=== PATIENT | female | born 1945 | race Caucasian/White ===

== ENCOUNTER 2017-04-22 09:15 | Emergency (ER) | payer OTHER ==
[~2017-04-22] VITALS: Ht 154.9 cm; Wt 104.3 kg
[~2017-04-22 09:15] MED LIST: AMIT10 PO; ASPI81CH PO; ASPI81EC; AZIT250 PO; CALCA500CH PO; CALCAVITD PO; CALCIT950 PO; CHOL10002; ERGO400 PO; ETOD400 PO; ETOD500 PO; ETOD500CR PO; LEVSOD100; LEVSOD100 PO; LEVSOD88 PO; LISHYD1012 PO; LISHYD2025 PO; LISI10; METO25 PO; OMEP20ER PO; OXYC5 PO; PREG75 PO; SERT50 PO; Slo-Niacin250 MG PO; [UNRECOGNIZED DRUG - OTHER]
== END 2017-04-22 11:55 | disposition home or self-care (01) ==
LOC: ER 09:15
DX: S00.83XA Contusion of other part of head, initial encounter (principal); S00.11XA Contusion of right eyelid and periocular area, initial encounter; I10 Essential (primary) hypertension; E03.9 Hypothyroidism, unspecified; Z79.899 Other long term (current) drug therapy; Z79.82 Long term (current) use of aspirin; Z87.891 Personal history of nicotine dependence; W22.8XXA Striking against or struck by other objects, initial encounter
CPT/HCPCS: 70450; 99284

== ENCOUNTER → 2018-08-21 | Outpatient (CLI) | payer OTHER ==
[2018-08-21 12:38] LABS: Appearance, Urine Clear (Clear); Blood, Urine 1+ (Neg); Color, Urine Yellow (P-Yellow); Glucose Qualitative, Urine Neg (Neg); Ketones, Urine Neg (Neg); Leukocyte Esterase, Urine 1+ (Neg); Nitrite, Urine Neg (Neg); Protein, Urine Neg (Neg); Specific Gravity, Urine 1.025 (1.003-1.022); Urobilinogen, Urine NORM (Normal)
[2018-08-21 12:53] LABS: Bilirubin, Urine 3+ (Neg)
[2018-08-21 13:02] LABS: Bacteria Rare /hpf; Mucus Light (0-Heavy); Red Blood Cells, Urine 0-2 /hpf (0-2); Squamous Epithelial Cells Few /hpf (Few)
== END | disposition home or self-care (01) ==
LOC: LAB 12:24 → LAB SHORT 12:24
PROVIDERS: Family Medicine
DX: R39.15 Urgency of urination (principal)
CPT/HCPCS: 81001

== ENCOUNTER → 2019-01-15 | Outpatient (CLI) | payer OTHER ==
[~2019-01-15] MED LIST changes: +CENTRUM SILVER1 EAC2 PO; -CHOL10002; +DOXY100 PO; +ONDA4ODT MM; +Synthroid88 MCG PO; +VITAMIN D32000 UNI3 PO
== END | disposition home or self-care (01) ==
LOC: LAB 15:10 → LAB SHORT 15:10
DX: N39.0 Urinary tract infection, site not specified (principal)
CPT/HCPCS: 87086

== ENCOUNTER 2019-02-17 11:54 | Emergency (ER) | payer OTHER ==
[~2019-02-17] VITALS: Ht 154.9 cm; Wt 89.4 kg
[~2019-02-17 11:54] MED LIST changes: -CENTRUM SILVER1 EAC2 PO; -DOXY100 PO; -ONDA4ODT MM; -Synthroid88 MCG PO
[2019-02-17] MEDS ORDERED: Synthroid88 MCG PO (12:22)
[2019-02-17] MEDS ORDERED: CENTRUM SILVER1 EAC2 PO (12:23)
[2019-02-17] MEDS ORDERED: DOXY100 PO (12:30)
[2019-02-17] MEDS ORDERED: ONDA4ODT MM (13:53)
== END 2019-02-17 14:12 | disposition home or self-care (01) ==
LOC: ER 11:54
DX: S16.1XXA Strain of muscle, fascia and tendon at neck level, initial encounter (principal); S00.03XA Contusion of scalp, initial encounter; I10 Essential (primary) hypertension; E03.9 Hypothyroidism, unspecified; Z79.899 Other long term (current) drug therapy; Z79.82 Long term (current) use of aspirin; Z87.891 Personal history of nicotine dependence; W01.0XXA Fall on same level from slipping, tripping and stumbling without subsequent striking against object, initial encounter
CPT/HCPCS: 70450; 72125; 99283-25; A9270-GY

== ENCOUNTER → 2019-10-16 | Outpatient (CLI) | payer OTHER ==
[~2019-10-16] MED LIST changes: +CENTRUM SILVER1 EAC2 PO; +DOXY100 PO; +ONDA4ODT MM; +Synthroid88 MCG PO
[2019-10-16 08:45] LABS: Source, Urine Clean Catch
[2019-10-16 09:09] LABS: Appearance, Urine Hazy (Clear); Bilirubin, Urine 2+ (Neg); Blood, Urine 1+ (Neg); Color, Urine Yellow (P-Yellow); Glucose Qualitative, Urine Neg (Normal); Ketones, Urine Neg (Neg); Leukocyte Esterase, Urine 2+ (Neg); Nitrite, Urine Neg (Neg); Protein, Urine Neg (Neg); Specific Gravity, Urine 1.025 (1.003-1.022); Urobilinogen, Urine NORM (Normal)
[2019-10-16 09:10] LABS: Bacteria Few /hpf; Squamous Epithelial Cells Mod /hpf (Few)
== END | disposition home or self-care (01) ==
LOC: LAB EV 08:30 → LAB SHORT 08:30
PROVIDERS: Family Medicine
DX: R53.83 Other fatigue (principal)
CPT/HCPCS: 81001; 87077; 87086; 87186

== ENCOUNTER 2019-11-18 22:23 | Emergency (ER) | payer OTHER ==
[~2019-11-18] VITALS: Ht 154.9 cm; Wt 99.8 kg
[2019-11-18] MEDS ORDERED: HYDR1TAB94 PO (23:29)
[2019-11-19] MEDS ORDERED: Crutch1 EACH XX (00:08)
== END 2019-11-19 00:41 | disposition home or self-care (01) ==
LOC: ER 22:23
DX: S82.831A Other fracture of upper and lower end of right fibula, initial encounter for closed fracture (principal); I10 Essential (primary) hypertension; E03.9 Hypothyroidism, unspecified; Z79.82 Long term (current) use of aspirin; Z79.899 Other long term (current) drug therapy; Z87.891 Personal history of nicotine dependence; W01.0XXA Fall on same level from slipping, tripping and stumbling without subsequent striking against object, initial encounter; Y93.89 Activity, other specified
CPT/HCPCS: 29515; 36415; 73502; 73560-RT; 73610; 96374-59; 96375-59; 99283-25; A9270; A9270-GY; J2405; J3010

== ENCOUNTER 2019-11-26 09:19 | Day surgery (SDC) | payer OTHER ==
[~2019-11-26] VITALS: Ht 162.6 cm; Wt 94.4 kg
[~2019-11-26 09:19] MED LIST changes: +Crutch1 EACH XX; +HYDR1TAB94 PO
[2019-11-26] MEDS ORDERED: SERT50 PO (09:37)
--- NOTE | 2019-11-26 12:44 | NUR ---
11/26/19 1244 LALITA FERGUSON PATIENT UP TO RECLINER. VSS. PATIENT MEDICATED WITH IV FENTANYL FOR PAIN AND PO NORCO PER MD ORDERS. PATIENT TOLERATING PO INTAKE. IV PATENT. PAT REPORTS IMRPOVEMENT OF PAIN WITH IV PAIN MEDICATION, PO GIVEN TO MAINTAIN PAIN LEVEL. ENGAGED IN DC TEACHING, ALL QUESTIONS ASKED AND ANSWERED. IV DC'D.
== END 2019-11-26 12:47 | disposition home or self-care (01) ==
LOC: ORSCSDS 09:19
PROVIDERS: Orthopaedic Surgery
PROC: 0QSJ04Z Reposition Right Fibula with Internal Fixation Device, Open Approach (ICD-10-PCS; principal; 2019-11-26 10:15)
DX: S82.61XA Displaced fracture of lateral malleolus of right fibula, initial encounter for closed fracture (principal); I10 Essential (primary) hypertension; G47.33 Obstructive sleep apnea (adult) (pediatric); E03.9 Hypothyroidism, unspecified; M79.7 Fibromyalgia; E66.01 Morbid (severe) obesity due to excess calories; Z68.41 Body mass index [BMI] 40.0-44.9, adult; Z79.899 Other long term (current) drug therapy; Z79.82 Long term (current) use of aspirin
CPT/HCPCS: A9270-GY; C1713; J0171; J0690; J1100; J1885; J2250; J2405; J2704; J3010; J3370

== ENCOUNTER 2019-12-24 16:38 | Emergency (ER) | payer OTHER ==
[~2019-12-24] VITALS: Ht 152.4 cm; Wt 90.7 kg
== END 2019-12-24 20:15 | disposition home or self-care (01) ==
LOC: ER 16:38
DX: M25.561 Pain in right knee (principal); I10 Essential (primary) hypertension; E03.9 Hypothyroidism, unspecified; Z46.89 Encounter for fitting and adjustment of other specified devices; Z79.82 Long term (current) use of aspirin; Z79.899 Other long term (current) drug therapy; X50.1XXA Overexertion from prolonged static or awkward postures, initial encounter; W01.0XXA Fall on same level from slipping, tripping and stumbling without subsequent striking against object, initial encounter
CPT/HCPCS: 29705; 73562-RT; 99283-25

== ENCOUNTER 2019-12-28 16:36 | Emergency (ER) | payer OTHER ==
[~2019-12-28] VITALS: Ht 152.4 cm; Wt 90.7 kg
[2019-12-28] MEDS ORDERED: XARELTO15 MG PO (18:21)
== END 2019-12-28 18:56 | disposition home or self-care (01) ==
LOC: ER 16:36
DX: I82.431 Acute embolism and thrombosis of right popliteal vein (principal); I82.441 Acute embolism and thrombosis of right tibial vein; E03.9 Hypothyroidism, unspecified; I10 Essential (primary) hypertension; Z79.82 Long term (current) use of aspirin; Z79.899 Other long term (current) drug therapy; Z87.891 Personal history of nicotine dependence
CPT/HCPCS: 93971; 99283-25

== ENCOUNTER → 2020-08-06 | Outpatient (CLI) | payer OTHER ==
[~2020-08-06] MED LIST changes: +XARELTO15 MG PO
== END | disposition home or self-care (01) ==
LOC: LAB SHORT 12:20
DX: N39.0 Urinary tract infection, site not specified (principal)
CPT/HCPCS: 87077; 87086; 87186

== ENCOUNTER 2021-04-05 06:49 | Emergency (ER) | payer OTHER ==
[~2021-04-05] VITALS: Ht 152.4 cm; Wt 102.1 kg
[2021-04-05] MEDS ORDERED: PRAVASTATIN SOD10 MG PO (07:52)
[2021-04-05] MEDS ORDERED: Prinivil10 MG PO (07:54)
[2021-04-05 07:55] LABS: BASOPHILS ABSOLUTE AUTO 0.05 K/mm3 (0.00-0.23); BASOPHILS PERCENT AUTO 1 % (0-2); EOSINOPHILS ABSOLUTE AUTO 0.04 K/mm3 (0.00-0.68); EOSINOPHILS PERCENT AUTO 1 % (0-6); Hematocrit 41.9 % (33.0-51.0); Hemoglobin 13.3 g/dL (11.5-16.0); IMMATURE GRAN ABSOLUTE AUTO 0.02 K/mm3 (0.00-0.10); IMMATURE GRAN PERCENT AUTO 0 % (0-1); LYMPHOCYTES ABSOLUTE AUTO 1.08 K/mm3 (0.84-5.20); LYMPHOCYTES PERCENT AUTO 14 % (21-46); MONOCYTES ABSOLUTE AUTO 0.63 K/mm3 (0.16-1.47); MONOCYTES PERCENT AUTO 8 % (4-13); Mean Corpuscular HGB 27.8 pg (26.0-34.0); Mean Corpuscular HGB Conc 31.7 g/dL (31.5-36.5); Mean Corpuscular Volume 88 fL (80-100); NEUTROPHILS ABSOLUTE AUTO 5.95 K/mm3 (1.96-9.15); NEUTROPHILS PERCENT AUTO 77 % (41-73); Platelet Count 447 K/mm3 (150-400); RDW Coefficient Variation 13.6 % (11.7-14.2); RDW Standard Deviation 43.8 fL (35.1-46.3); Red Blood Cell Count 4.79 M/mm3 (3.80-5.20); White Blood Cell Count 7.77 K/mm3 (4.00-11.30)
[2021-04-05 08:50] LABS: Albumin, Blood 3.2 g/dL (3.4-5.0); Albumin/Globulin Ratio 0.8 (0.8-1.8); Bilirubin, Total 0.6 mg/dL (0.1-1.0); Bun/Creatinine Ratio 21.2 (12.0-20.0); Calcium, Blood 9.1 mg/dL (8.5-10.1); Creatinine, Blood 0.94 mg/dL (0.40-1.00); Potassium, Blood 3.6 mmol/L (3.5-5.5); Total Protein, Blood 7.2 g/dL (6.4-8.2)
[2021-04-05 10:23] LABS: Source, Urine Straight Cath
[2021-04-05 11:04] LABS: Blood, Urine 5+ (Neg); Glucose Qualitative, Urine Neg (Neg); Ketones, Urine 2+ (Neg); Leukocyte Esterase, Urine 1+ (Neg); Nitrite, Urine Neg (Neg); Protein, Urine 2+ (Neg); Urobilinogen, Urine NORM (Normal)
[2021-04-05 11:15] LABS: Appearance, Urine Cloudy (Clear); Bilirubin, Urine 2+ (Neg); Color, Urine Yellow (P-Yellow)
[2021-04-05 11:18] LABS: Bacteria Mod /hpf; Red Blood Cells, Urine TNTC /hpf (0-2); Squamous Epithelial Cells Rare /hpf (Few); White Blood Cells, Urine 0-2 /hpf (0-5)
[2021-04-05] MEDS ORDERED: OXYC5 PO (11:46)
== END 2021-04-05 11:56 | disposition home or self-care (01) ==
LOC: ER 06:49
PROVIDERS: Emergency Medicine
DX: N13.2 Hydronephrosis with renal and ureteral calculous obstruction (principal); I10 Essential (primary) hypertension; E03.9 Hypothyroidism, unspecified; Z87.891 Personal history of nicotine dependence; Z79.82 Long term (current) use of aspirin; Z79.899 Other long term (current) drug therapy
CPT/HCPCS: 36415; 51701; 74176; 80053; 81000; 81001; 83690; 85025; 87086; 96374; 96375; 99284-25; J0696; J1170; J2405; J7030

== ENCOUNTER 2021-05-22 08:28 | Emergency (ER) | payer OTHER ==
[~2021-05-22] VITALS: Ht 157.5 cm; Wt 86.2 kg
[~2021-05-22 08:28] MED LIST changes: +PRAVASTATIN SOD10 MG PO; +Prinivil10 MG PO
[2021-05-22 09:19] LABS: BASOPHILS ABSOLUTE AUTO 0.05 K/mm3 (0.00-0.23); BASOPHILS PERCENT AUTO 1 % (0-2); EOSINOPHILS ABSOLUTE AUTO 0.02 K/mm3 (0.00-0.68); EOSINOPHILS PERCENT AUTO 0 % (0-6); Hematocrit 39.1 % (33.0-51.0); Hemoglobin 12.5 g/dL (11.5-16.0); IMMATURE GRAN ABSOLUTE AUTO 0.03 K/mm3 (0.00-0.10); IMMATURE GRAN PERCENT AUTO 0 % (0-1); LYMPHOCYTES PERCENT AUTO 11 % (21-46); MONOCYTES ABSOLUTE AUTO 0.57 K/mm3 (0.16-1.47); MONOCYTES PERCENT AUTO 8 % (4-13); Mean Corpuscular HGB 28.2 pg (26.0-34.0); Mean Corpuscular Volume 88 fL (80-100); NEUTROPHILS PERCENT AUTO 80 % (41-73); Platelet Count 428 K/mm3 (150-400); RDW Coefficient Variation 13.3 % (11.7-14.2); RDW Standard Deviation 43.3 fL (35.1-46.3); Red Blood Cell Count 4.44 M/mm3 (3.80-5.20); White Blood Cell Count 7.37 K/mm3 (4.00-11.30)
[2021-05-22 09:25] LABS: Albumin, Blood 3.1 g/dL (3.4-5.0); Albumin/Globulin Ratio 0.7 (0.8-1.8); Bilirubin, Total 0.3 mg/dL (0.1-1.0); Bun/Creatinine Ratio 24.5 (12.0-20.0); Calcium, Blood 9.3 mg/dL (8.5-10.1); Creatinine, Blood 1.06 mg/dL (0.40-1.00); Globulin, Blood 4.3 g/dL (2.2-4.0); Potassium, Blood 3.9 mmol/L (3.5-5.5); Total Protein, Blood 7.4 g/dL (6.4-8.2)
[2021-05-22 09:35] LABS: Source, Urine Clean Catch
[2021-05-22 09:39] LABS: Appearance, Urine Clear (Clear); Blood, Urine 4+ (Neg); Color, Urine Yellow (P-Yellow); Glucose Qualitative, Urine Neg (Neg); Ketones, Urine Neg (Neg); Leukocyte Esterase, Urine Neg (Neg); Nitrite, Urine Neg (Neg); Protein, Urine Neg (Neg); Urobilinogen, Urine NORM (Normal)
[2021-05-22 09:49] LABS: Bilirubin, Urine 1+ (Neg)
[2021-05-22 09:50] LABS: White Blood Cells, Urine 0-2 /hpf (0-5)
[2021-05-22 09:51] LABS: Bacteria Rare /hpf; Squamous Epithelial Cells Rare /hpf (Few)
[2021-05-22] MEDS ORDERED: ONDA4ODT MM (11:36)
[2021-05-22] MEDS ORDERED: OXAYDO5 M1 PO (11:36)
[2021-05-22] MEDS ORDERED: TAMS.4ER PO (11:36)
[2021-05-22] MEDS ORDERED: IBUP600 PO (11:36)
== END 2021-05-22 12:33 | disposition home or self-care (01) ==
LOC: ER 08:28
PROVIDERS: Emergency Medicine; Student in an Organized Health Care Education/Training Program
DX: T78.3XXA Angioneurotic edema, initial encounter (principal); N13.2 Hydronephrosis with renal and ureteral calculous obstruction; N17.9 Acute kidney failure, unspecified; I10 Essential (primary) hypertension; E03.9 Hypothyroidism, unspecified; Z87.891 Personal history of nicotine dependence; Z79.82 Long term (current) use of aspirin; Z79.899 Other long term (current) drug therapy
CPT/HCPCS: 36415; 74176; 80053; 81001; 83690; 85025; 96374; 96375; 99284-25; A9270; J1170; J1200; J1885; J2930

== ENCOUNTER 2021-05-24 10:40 | Emergency (ER) | payer OTHER ==
[~2021-05-24] VITALS: Ht 152.4 cm; Wt 90.7 kg
[~2021-05-24 10:40] MED LIST changes: +IBUP600 PO; +OXAYDO5 M1 PO; +TAMS.4ER PO
[2021-05-24 11:53] LABS: Source, Urine Clean Catch
[2021-05-24 11:59] LABS: Appearance, Urine Clear (Clear); Bilirubin, Urine Neg (Neg); Blood, Urine 3+ (Neg); Glucose Qualitative, Urine Neg (Neg); Ketones, Urine Neg (Neg); Leukocyte Esterase, Urine Neg (Neg); Nitrite, Urine Neg (Neg); Protein, Urine Neg (Neg); Urobilinogen, Urine NORM (Normal)
[2021-05-24 12:35] LABS: Bacteria Rare /hpf; Color, Urine Pale Yellow (P-Yellow); Squamous Epithelial Cells Rare /hpf (Few); White Blood Cells, Urine 0-2 /hpf (0-5)
[2021-05-24] MEDS ORDERED: ONDA4ODT MM (13:16)
[2021-05-24] MEDS ORDERED: TAMS.4ER PO (13:16)
== END 2021-05-24 13:30 | disposition home or self-care (01) ==
LOC: ER 10:40
PROVIDERS: Student in an Organized Health Care Education/Training Program
DX: N23 Unspecified renal colic (principal); R11.2 Nausea with vomiting, unspecified; N13.30 Unspecified hydronephrosis; Z79.899 Other long term (current) drug therapy; Z79.82 Long term (current) use of aspirin; I10 Essential (primary) hypertension; E03.9 Hypothyroidism, unspecified
CPT/HCPCS: 36415; 76770; 81001; 96374; 96375; 99284-25; A9270; J1885; J2405; J7030

== ENCOUNTER 2022-02-04 06:39 | Emergency (ER) | payer OTHER ==
[~2022-02-04] VITALS: Ht 154.9 cm; Wt 72.6 kg
[2022-02-04] MEDS ORDERED: Lisinopril-Hct1 EAC4 PO (08:17)
[2022-02-04] MEDS ORDERED: ROSUVASTATIN CAL5 MG PO (08:18)
[2022-02-04] MEDS ORDERED: METOPROLOL SUCC25 MG PO (08:18)
[2022-02-04] MEDS ORDERED: IBUP600 PO (10:06)
== END 2022-02-04 10:22 | disposition home or self-care (01) ==
LOC: ER 06:39
DX: S63.501A Unspecified sprain of right wrist, initial encounter (principal); W18.30XA Fall on same level, unspecified, initial encounter; I10 Essential (primary) hypertension; E03.9 Hypothyroidism, unspecified; Z79.899 Other long term (current) drug therapy; Z79.82 Long term (current) use of aspirin
CPT/HCPCS: 73110; A9270; J1885

== ENCOUNTER 2022-03-23 11:55 | Emergency (ER) | payer OTHER ==
[~2022-03-23] VITALS: Ht 157.5 cm; Wt 68.0 kg
[~2022-03-23 11:55] MED LIST changes: +Lisinopril-Hct1 EAC4 PO; +METOPROLOL SUCC25 MG PO; +ROSUVASTATIN CAL5 MG PO
[2022-03-23] MEDS ORDERED: Voltaren100 GM TOP (12:12)
== END 2022-03-23 12:14 | disposition home or self-care (01) ==
LOC: ER 11:55
DX: S63.501A Unspecified sprain of right wrist, initial encounter (principal); W18.30XA Fall on same level, unspecified, initial encounter; I10 Essential (primary) hypertension; E03.9 Hypothyroidism, unspecified; Z79.899 Other long term (current) drug therapy; Z79.82 Long term (current) use of aspirin
CPT/HCPCS: 29125; 99282-25

== ENCOUNTER 2022-09-16 10:36 | Emergency (ER) | payer MEDICARE ==
[~2022-09-16] VITALS: Ht 165.1 cm; Wt 99.8 kg
[~2022-09-16 10:36] MED LIST changes: +Voltaren100 GM TOP
[2022-09-16 10:59] LABS: Source, Urine Fem Cath
[2022-09-16 11:09] LABS: Appearance, Urine Clear (Clear); Bilirubin, Urine Neg (Neg); Blood, Urine 4+ (Neg); Color, Urine Yellow (P-Yellow); Glucose Qualitative, Urine Neg (Neg); Ketones, Urine Neg (Neg); Leukocyte Esterase, Urine Neg (Neg); Nitrite, Urine Neg (Neg); Protein, Urine Neg (Neg); Specific Gravity, Urine 1.025 (1.003-1.022); Urobilinogen, Urine NORM (Normal)
[2022-09-16 11:18] LABS: BASOPHILS ABSOLUTE AUTO 0.05 K/mm3 (0.00-0.23); BASOPHILS PERCENT AUTO 1 % (0-2); EOSINOPHILS ABSOLUTE AUTO 0.03 K/mm3 (0.00-0.68); EOSINOPHILS PERCENT AUTO 1 % (0-6); Hematocrit 38.5 % (33.0-51.0); Hemoglobin 12.6 g/dL (11.5-16.0); IMMATURE GRAN ABSOLUTE AUTO 0.01 K/mm3 (0.00-0.10); IMMATURE GRAN PERCENT AUTO 0 % (0-1); LYMPHOCYTES ABSOLUTE AUTO 1.15 K/mm3 (0.84-5.20); LYMPHOCYTES PERCENT AUTO 26 % (21-46); MONOCYTES ABSOLUTE AUTO 0.47 K/mm3 (0.16-1.47); MONOCYTES PERCENT AUTO 11 % (4-13); Mean Corpuscular HGB 29.4 pg (26.0-34.0); Mean Corpuscular HGB Conc 32.7 g/dL (31.5-36.5); Mean Corpuscular Volume 90 fL (80-100); Mean Platelet Volume 8.7 fL (9.1-12.4); NEUTROPHILS ABSOLUTE AUTO 2.73 K/mm3 (1.96-9.15); NEUTROPHILS PERCENT AUTO 62 % (41-73); Platelet Count 344 K/mm3 (150-400); RDW Coefficient Variation 13.1 % (11.7-14.2); RDW Standard Deviation 43.2 fL (35.1-46.3); Red Blood Cell Count 4.29 M/mm3 (3.80-5.20); White Blood Cell Count 4.44 K/mm3 (4.00-11.30)
[2022-09-16 11:32] LABS: Mucus Mod (0-Heavy)
[2022-09-16 11:33] LABS: Squamous Epithelial Cells Mod /hpf (Few)
[2022-09-16 11:34] LABS: Bacteria Few /hpf
[2022-09-16 11:38] LABS: Albumin, Blood 2.7 g/dL (3.4-5.0); Albumin/Globulin Ratio 0.6 (0.8-1.8); Bilirubin, Total 0.3 mg/dL (0.1-1.0); Bun/Creatinine Ratio 21.1 (12.0-20.0); Calcium, Blood 8.8 mg/dL (8.5-10.1); Creatinine, Blood 0.62 mg/dL (0.40-1.00); Globulin, Blood 4.2 g/dL (2.2-4.0); Total Protein, Blood 6.9 g/dL (6.4-8.2)
[2022-09-16 12:03] LABS: Free Thyroxine 0.89 ng/dL (0.70-1.60); Thyroid Stimulating Hormone 5.44 uIU/mL (0.360-4.800); Triiodothyronine, Free 2.04 pg/mL (2.18-3.98)
[2022-09-16 13:01] VITALS: BP 132/78
[2022-09-16] MEDS ORDERED: LEVSOD88 PO (13:21)
== END 2022-09-16 13:27 | disposition home or self-care (01) ==
LOC: ER 10:36
PROVIDERS: Student in an Organized Health Care Education/Training Program
DX: R41.0 Disorientation, unspecified (principal); E03.9 Hypothyroidism, unspecified; I10 Essential (primary) hypertension; Z79.899 Other long term (current) drug therapy
CPT/HCPCS: 70450; 80053; 81001; 84439; 84443; 84481; 85025; 93005; 93010; 99285-25; P9612

== ENCOUNTER → 2022-10-13 | Outpatient (CLI) | payer MEDICARE ==
[2022-10-13 17:55] LABS: BASOPHILS ABSOLUTE AUTO 0.05 K/mm3 (0.00-0.23); BASOPHILS PERCENT AUTO 1 % (0-2); EOSINOPHILS ABSOLUTE AUTO 0.03 K/mm3 (0.00-0.68); EOSINOPHILS PERCENT AUTO 1 % (0-6); Hemoglobin 11.7 g/dL (11.5-16.0); IMMATURE GRAN ABSOLUTE AUTO 0.01 K/mm3 (0.00-0.10); IMMATURE GRAN PERCENT AUTO 0 % (0-1); LYMPHOCYTES ABSOLUTE AUTO 1.29 K/mm3 (0.84-5.20); LYMPHOCYTES PERCENT AUTO 22 % (21-46); MONOCYTES ABSOLUTE AUTO 0.64 K/mm3 (0.16-1.47); MONOCYTES PERCENT AUTO 11 % (4-13); Mean Corpuscular HGB 28.9 pg (26.0-34.0); Mean Corpuscular HGB Conc 31.6 g/dL (31.5-36.5); Mean Corpuscular Volume 91 fL (80-100); Mean Platelet Volume 10.2 fL (9.1-12.4); NEUTROPHILS ABSOLUTE AUTO 3.77 K/mm3 (1.96-9.15); NEUTROPHILS PERCENT AUTO 65 % (41-73); Platelet Count 310 K/mm3 (150-400); RDW Coefficient Variation 13.2 % (11.7-14.2); RDW Standard Deviation 44.6 fL (35.1-46.3); Red Blood Cell Count 4.05 M/mm3 (3.80-5.20); White Blood Cell Count 5.79 K/mm3 (4.00-11.30)
[2022-10-13 18:38] LABS: Albumin, Blood 3.2 g/dL (3.4-5.0); Albumin/Globulin Ratio 0.7 (0.8-1.8); Bilirubin, Total 0.3 mg/dL (0.1-1.0); Bun/Creatinine Ratio 23.9 (12.0-20.0); Calcium, Blood 9.3 mg/dL (8.5-10.1); Creatinine, Blood 0.55 mg/dL (0.40-1.00); Globulin, Blood 4.4 g/dL (2.2-4.0); Potassium, Blood 3.9 mmol/L (3.5-5.5); Total Protein, Blood 7.6 g/dL (6.4-8.2)
== END | disposition home or self-care (01) ==
LOC: LAB SHORT 12:20 → LAB 12:20
PROVIDERS: Physician Assistant
DX: N39.0 Urinary tract infection, site not specified (principal); I10 Essential (primary) hypertension
CPT/HCPCS: 80053; 85025; 87086

== ENCOUNTER 2022-10-21 14:49 | Emergency (ER) | payer MEDICARE ==
[~2022-10-21] VITALS: Ht 154.9 cm; Wt 81.7 kg
[2022-10-21 15:45] VITALS: BP 109/81
== END 2022-10-21 16:50 | disposition home or self-care (01) ==
LOC: ER 14:49
DX: N81.89 Other female genital prolapse (principal); I10 Essential (primary) hypertension; E03.9 Hypothyroidism, unspecified
CPT/HCPCS: 99283

== ENCOUNTER 2023-06-25 18:30 | Emergency (ER) | payer MEDICARE ==
[~2023-06-25] VITALS: Ht 154.9 cm; Wt 68.6 kg
[~2023-06-25 18:30] MED LIST changes: +CEPH500 PO
[2023-06-25 19:35] LABS: BASOPHILS ABSOLUTE AUTO 0.04 K/mm3 (0.00-0.23); BASOPHILS PERCENT AUTO 1 % (0-2); EOSINOPHILS ABSOLUTE AUTO 0.03 K/mm3 (0.00-0.68); EOSINOPHILS PERCENT AUTO 0 % (0-6); Hematocrit 36.8 % (33.0-51.0); Hemoglobin 12.2 g/dL (11.5-16.0); IMMATURE GRAN ABSOLUTE AUTO 0.02 K/mm3 (0.00-0.10); IMMATURE GRAN PERCENT AUTO 0 % (0-1); LYMPHOCYTES ABSOLUTE AUTO 1.44 K/mm3 (0.84-5.20); LYMPHOCYTES PERCENT AUTO 20 % (21-46); MONOCYTES PERCENT AUTO 11 % (4-13); Mean Corpuscular HGB Conc 33.2 g/dL (31.5-36.5); Mean Corpuscular Volume 87 fL (80-100); Mean Platelet Volume 8.6 fL (9.1-12.4); NEUTROPHILS ABSOLUTE AUTO 4.83 K/mm3 (1.96-9.15); NEUTROPHILS PERCENT AUTO 67 % (41-73); Platelet Count 374 K/mm3 (150-400); RDW Coefficient Variation 12.9 % (11.7-14.2); RDW Standard Deviation 41.3 fL (35.1-46.3); Red Blood Cell Count 4.21 M/mm3 (3.80-5.20); White Blood Cell Count 7.16 K/mm3 (4.00-11.30)
[2023-06-25 19:37] LABS: Source, Urine Foley catheter
[2023-06-25 19:40] LABS: Appearance, Urine Cloudy (Clear); Bilirubin, Urine Neg (Neg); Blood, Urine 4+ (Neg); Color, Urine Amber (P-Yellow); Glucose Qualitative, Urine Neg (Neg); Ketones, Urine Neg (Neg); Leukocyte Esterase, Urine 3+ (Neg); Nitrite, Urine Neg (Neg); Protein, Urine 2+ (Neg); Urobilinogen, Urine NORM (Normal)
[2023-06-25 19:49] LABS: Bacteria Many /hpf; Squamous Epithelial Cells Not Seen /hpf (Few); White Blood Cells, Urine TNTC /hpf (0-5)
[2023-06-25] MEDS ORDERED: HYDROmorphone HCl/Pf 1MG SYR IV ONE (19:55)
[2023-06-25] MEDS ORDERED: CefTRIAXone Sodium 1,000 MG in NS 100 ML IV ONE (19:55)
[2023-06-25 19:58] LABS: Albumin, Blood 3.2 g/dL (3.4-5.0); Albumin/Globulin Ratio 0.7 (0.8-1.8); Bilirubin, Total 0.3 mg/dL (0.1-1.0); Bun/Creatinine Ratio 28.4 (12.0-20.0); Calcium, Blood 10.1 mg/dL (8.5-10.1); Creatinine, Blood 0.74 mg/dL (0.40-1.00); Globulin, Blood 4.5 g/dL (2.2-4.0); Potassium, Blood 3.3 mmol/L (3.5-5.5); Total Protein, Blood 7.7 g/dL (6.4-8.2)
[2023-06-25 21:00] VITALS: BP 117/77
[2023-06-25] MEDS ORDERED: CEFU500T30 PO (21:33)
== END 2023-06-25 22:46 | disposition home or self-care (01) ==
LOC: ER 18:30
PROVIDERS: Nurse Practitioner
DX: N39.0 Urinary tract infection, site not specified (principal); N81.3 Complete uterovaginal prolapse; E87.6 Hypokalemia; I10 Essential (primary) hypertension; M79.7 Fibromyalgia; E03.9 Hypothyroidism, unspecified; Z79.890 Hormone replacement therapy
CPT/HCPCS: 51702; 80053; 81001; 85025; J0696; J1170

== ENCOUNTER 2024-03-14 10:58 | Inpatient (IN) | payer MEDICARE ==
[~2024-03-14] VITALS: Ht 162.6 cm; Wt 65.0 kg
[~2024-03-14 10:58] MED LIST changes: +ACET500 PO; +CEFU500T30 PO; +SULTRIDS PO; +XARELTO1 EAC1 PO
[2024-03-14 11:25] LABS: BASOPHILS ABSOLUTE AUTO 0.03 K/mm3 (0.00-0.23); BASOPHILS PERCENT AUTO 0 % (0-2); EOSINOPHILS ABSOLUTE AUTO 0.02 K/mm3 (0.00-0.68); EOSINOPHILS PERCENT AUTO 0 % (0-6); Hematocrit 36.3 % (33.0-51.0); Hemoglobin 12.2 g/dL (11.5-16.0); IMMATURE GRAN ABSOLUTE AUTO 0.02 K/mm3 (0.00-0.10); IMMATURE GRAN PERCENT AUTO 0 % (0-1); LYMPHOCYTES ABSOLUTE AUTO 1.05 K/mm3 (0.84-5.20); LYMPHOCYTES PERCENT AUTO 15 % (21-46); MONOCYTES ABSOLUTE AUTO 0.61 K/mm3 (0.16-1.47); MONOCYTES PERCENT AUTO 8 % (4-13); Mean Corpuscular HGB 28.3 pg (26.0-34.0); Mean Corpuscular HGB Conc 33.6 g/dL (31.5-36.5); Mean Corpuscular Volume 84 fL (80-100); Mean Platelet Volume 8.4 fL (9.1-12.4); NEUTROPHILS PERCENT AUTO 76 % (41-73); Platelet Count 371 K/mm3 (150-400); RDW Standard Deviation 40.1 fL (35.1-46.3); Red Blood Cell Count 4.31 M/mm3 (3.80-5.20); White Blood Cell Count 7.23 K/mm3 (4.00-11.30)
[2024-03-14 11:57] LABS: Alanine Aminotransfer (ALT/SGP 26 U/L (12-78); Albumin, Blood 2.7 g/dL (3.4-5.0); Albumin/Globulin Ratio 0.6 (0.8-1.8); Alk Phos 78 U/L (50-136); Anion Gap 11 mmol/L (3-11); Aspartate Aminotrans (AST/SGOT 40 U/L (12-37); Bilirubin, Total 0.7 mg/dL (0.1-1.0); Blood Urea Nitrogen 20 mg/dL (8-24); Bun/Creatinine Ratio 28.2 (12.0-20.0); CO2, Blood 25 mmol/L (21-32); Calcium, Blood 9.7 mg/dL (8.5-10.1); Chloride, Blood 107 mmol/L (98-108); Creatinine, Blood 0.71 mg/dL (0.40-1.00); Ethanol (Alcohol), Blood, Med <3 mg/dL; Globulin, Blood 4.3 g/dL (2.2-4.0); Glomerular Filtration Rate 88 (60-); Glucose, Blood 93 mg/dL (70-99); Potassium, Blood 3.4 mmol/L (3.5-5.5); Sodium, Blood 140 mmol/L (136-145)
[2024-03-14 12:30] LABS: Source, Urine Clean Catch
[2024-03-14 12:36] LABS: Appearance, Urine Turbid (Clear); Bilirubin, Urine Neg (Neg); Blood, Urine 2+ (Neg); Color, Urine Yellow (P-Yellow); Glucose Qualitative, Urine Neg (Neg); Ketones, Urine 1+ (Neg); Leukocyte Esterase, Urine 2+ (Neg); Nitrite, Urine Pos (Neg); Protein, Urine 2+ (Neg); Specific Gravity, Urine 1.015 (1.003-1.022); Urobilinogen, Urine 1+ (Normal)
[2024-03-14 12:52] LABS: Bacteria Many /hpf; Red Blood Cells, Urine 0-2 /hpf (0-2); Squamous Epithelial Cells Mod /hpf (Few)
[2024-03-14 12:53] LABS: Amorphous Heavy (0-Heavy); Mucus Light (0-Heavy)
[2024-03-14] MEDS ORDERED: CefTRIAXone Sodium 1,000 MG in NS 100 ML IV ONE (12:55)
[2024-03-14] MEDS ORDERED: NS 1,000 ML IV SCH (13:40)
[2024-03-14] MEDS ORDERED: FLU VACC TS2024-25(6MOS UP)/PF 45 MCG/0.5 ML SYRINGE IM SCH (14:40)
[2024-03-14] MEDS ORDERED: Acetaminophen 325 MG TABLET PO PRN (14:40)
[2024-03-14] MEDS ORDERED: TraMADol HCl 50 MG Tab PO PRN (14:40)
[2024-03-14] MEDS ORDERED: Potassium Chloride 20 MEQ TabCR PO ONE (14:45)
--- NOTE | 2024-03-14 16:51 | NUR ---
RECIEVED REPORT FROM GAIL GUDINO.
[2024-03-14 17:17] VITALS: BP 132/81
[2024-03-14] MEDS ORDERED: LEVOTHYROXINE100 M10 PO (17:24)
[2024-03-14] MEDS ORDERED: NS 250 ML IV PRN (17:55)
[2024-03-14] MEDS ORDERED: CeFAZolin Sodium 1,000 MG in NS 50 ML IV SCH (18:00)
--- NOTE | 2024-03-14 18:05 | NUR ---
SHIFT SUMMARY ARRIVAL PT ARRIVED 1710, PT AOX4, COOPERATIVE, ABLE TO MAKE NEEDS KNOWN. PT IS VERY TALKATIVE IS HERE FOR FLUIDS AND IV ANTIBIOTICS FOR RIGHT KNEE ABSCESS. PT HAS NO COMPLAINTS. BED IN LOWEST POSITION, CALL LIGHT WITHIN REACH.
[2024-03-14 19:51] VITALS: BP 120/64
[2024-03-14] MEDS ORDERED: Lactobacil 2-S.Thermo-Bifido 1 1 Cap PO SCH (21:00)
[2024-03-15 03:01] VITALS: BP 99/57
--- NOTE | 2024-03-15 05:10 | NUR ---
SHIFT SUMMARY PATIENT WAS PLEASANT OVERNIGHT. PATIENT AOX2, ONLY TO PLACE AND SELF. SHE REMAINED CONFUSED THROUGHOUT ADAPTIVE PHYSICAL EDUCATOR. WHEN HER IV PUMP WOULD BEEP, SHE THOUGHT IT WAS A PHONE CALL, FOR EXAMPLE. PATIENT DOES NOT USE CALL LIGHT, BUT SHE DOES NOT GET OUT OF BED WITHOUT TELLING STAFF. PATIENT WAS ABLE TO WALK TO BATHROOM W/ FWW AND HAD URINE OUTPUT AND BM X1 EACH. PATIENT'S ABCESS WAS CLEANED, DRESSED, AND PHOTOGRAPHED. NO ACUTE EVENTS OVERNIGHT.
[2024-03-15 05:24] LABS: BASOPHILS ABSOLUTE AUTO 0.05 K/mm3 (0.00-0.23); BASOPHILS PERCENT AUTO 1 % (0-2); EOSINOPHILS ABSOLUTE AUTO 0.12 K/mm3 (0.00-0.68); EOSINOPHILS PERCENT AUTO 2 % (0-6); Hematocrit 34.8 % (33.0-51.0); IMMATURE GRAN ABSOLUTE AUTO 0.01 K/mm3 (0.00-0.10); IMMATURE GRAN PERCENT AUTO 0 % (0-1); LYMPHOCYTES ABSOLUTE AUTO 0.84 K/mm3 (0.84-5.20); LYMPHOCYTES PERCENT AUTO 17 % (21-46); MONOCYTES ABSOLUTE AUTO 0.48 K/mm3 (0.16-1.47); MONOCYTES PERCENT AUTO 10 % (4-13); Mean Corpuscular HGB 28.1 pg (26.0-34.0); Mean Corpuscular HGB Conc 31.6 g/dL (31.5-36.5); Mean Platelet Volume 8.7 fL (9.1-12.4); NEUTROPHILS ABSOLUTE AUTO 3.55 K/mm3 (1.96-9.15); NEUTROPHILS PERCENT AUTO 70 % (41-73); Platelet Count 329 K/mm3 (150-400); RDW Coefficient Variation 13.3 % (11.7-14.2); RDW Standard Deviation 43.6 fL (35.1-46.3); Red Blood Cell Count 3.91 M/mm3 (3.80-5.20); White Blood Cell Count 5.05 K/mm3 (4.00-11.30)
[2024-03-15 05:30] LABS: Mean Corpuscular Volume 89 fL (80-100)
[2024-03-15 06:00] LABS: Bun/Creatinine Ratio 23.3 (12.0-20.0); Calcium, Blood 8.9 mg/dL (8.5-10.1); Creatinine, Blood 0.73 mg/dL (0.40-1.00); Potassium, Blood 3.3 mmol/L (3.5-5.5)
[2024-03-15 07:56] VITALS: BP 107/64
[2024-03-15] MEDS ORDERED: Enoxaparin 40 MG/0.4 ML SYR SC SCH (09:00)
[2024-03-15] MEDS ORDERED: Potassium Chloride 20 MEQ TabCR PO ONE (09:50)
[2024-03-15 10:37] LABS: International Normalized Ratio 1.04; Prothrombin Time Results 11.1 Sec (9.7-11.5)
[2024-03-15] MEDS ORDERED: Heparin Sodium,Porcine/0.5 NS 500 ML IV SCH (11:00)
[2024-03-15] MEDS ORDERED: Heparin Sodium 5000 Units/ML 1ML MDV IV ONE (11:00)
[2024-03-15] MEDS ORDERED: Heparin Sodium 1000 Units/ML 10ML MDV ONE ×2 (13:25→15:09)
[2024-03-15] MEDS ORDERED: NS 1,000 ML IV ONE ×2 (13:25→14:40)
[2024-03-15] MEDS ORDERED: Midazolam HCl 1MG / ML 2ML Vial ONE (14:40)
[2024-03-15] MEDS ORDERED: FentaNYL Citrate 50 MCG/ML 2 ML Injection ONE (14:40)
[2024-03-15 16:31] VITALS: BP 125/75
--- NOTE | 2024-03-15 16:32 | NUR ---
"Spiritual Care Visit | Pt. Request Pt. is awake in bed. A nurse is at bedside when the Pt. welcomed my visit. The Pt. displayed evidence of being pleasantly confused, but a light hearted life review was facilitated. Prayed for the Pt. Pt. verbalized gratitude fo rthe spiritual care visit and welcomed me to return."
[2024-03-15] MEDS ORDERED: Dose Adjust by Pharmacy XX STA (16:35)
--- NOTE | 2024-03-15 18:41 | NUR ---
SHIFT SUMMARY AOX2, 1 ASSIST WITH THE FWW TO THE BR BUT PT IS TO BE ON STRICT BR UNTIL THE REMOVAL OF HER PAPETLLE FUNMI STASIS IS REMOVED TOMORROW FROM THE BACK OF HER R KNEE. PT TOLERATED THE PROCEDURE WELL AND IS COMPLYING WITH THE RECOMMENDATIONS. HEPARIN DRIP INFUSING AND RATE MANAGED BY THE PHARMACY. PT HAS HAD NO COMPLAINTS. BA IS ON DUE TO PT BEING IMPULSIVE AT TIMES. BANDAGE TO R KNEE FOR ABSCESS DRAINAGE. GRANDDAUGHTER UPDATED THIS EVENING. PT REPOSITIONED THROUGHOUT THE SHIFT BUT SHE ALSO REPOSITIONS SELF. CALL LIGHT WITHIN REACH, BED LOCKED AND IN THE LOWEST POSITION. WILL REPORT TO ONCOMING NURSE.
[2024-03-15 22:34] VITALS: BP 122/70
[2024-03-15 23:43] LABS: Anti-Xa UFH, PHA Monitoring 0.76 IU/mL
[2024-03-16] MEDS ORDERED: Dose Adjust by Pharmacy XX STA ×2 (00:25→12:57)
[2024-03-16 05:02] LABS: BASOPHILS ABSOLUTE AUTO 0.04 K/mm3 (0.00-0.23); BASOPHILS PERCENT AUTO 1 % (0-2); EOSINOPHILS ABSOLUTE AUTO 0.26 K/mm3 (0.00-0.68); EOSINOPHILS PERCENT AUTO 6 % (0-6); Hematocrit 31.5 % (33.0-51.0); IMMATURE GRAN ABSOLUTE AUTO 0.03 K/mm3 (0.00-0.10); IMMATURE GRAN PERCENT AUTO 1 % (0-1); LYMPHOCYTES ABSOLUTE AUTO 1.01 K/mm3 (0.84-5.20); LYMPHOCYTES PERCENT AUTO 21 % (21-46); MONOCYTES ABSOLUTE AUTO 0.56 K/mm3 (0.16-1.47); MONOCYTES PERCENT AUTO 12 % (4-13); Mean Corpuscular HGB 28.4 pg (26.0-34.0); Mean Corpuscular HGB Conc 31.7 g/dL (31.5-36.5); Mean Corpuscular Volume 90 fL (80-100); Mean Platelet Volume 8.3 fL (9.1-12.4); NEUTROPHILS ABSOLUTE AUTO 2.81 K/mm3 (1.96-9.15); NEUTROPHILS PERCENT AUTO 60 % (41-73); Platelet Count 259 K/mm3 (150-400); RDW Coefficient Variation 13.2 % (11.7-14.2); Red Blood Cell Count 3.52 M/mm3 (3.80-5.20); White Blood Cell Count 4.71 K/mm3 (4.00-11.30)
[2024-03-16 05:25] VITALS: BP 115/65
[2024-03-16 05:37] LABS: Bun/Creatinine Ratio 21.5 (12.0-20.0); Calcium, Blood 8.3 mg/dL (8.5-10.1); Creatinine, Blood 0.61 mg/dL (0.40-1.00); Potassium, Blood 3.5 mmol/L (3.5-5.5)
--- NOTE | 2024-03-16 06:36 | NUR ---
Shift Summary Pt is AOx2 with poor short term memory. Attempts were made to have her void in bed but she was unable to release any urine. We got her up twice to the bedside commode using pivot transfer, she was able to void in the BSC without issue. Flow stasis is still intact, clean and dry. Dressing was changed on R knee, previous dressing was saturated with clearish yellow drainage. Pt has been NPO since 0000 for possible I&D of L knee today as seen in progress notes. She is on a heparine drip which pharmacy has maintaned at 15.6 mL/hr t/o the shift, no interruptions of infusion. Bed alarm is on as pt forgets instructions to call before getting up.
[2024-03-16 07:37] VITALS: BP 125/67
--- NOTE | 2024-03-16 15:05 | NUR ---
Pt was alert and conversational but displayed a limited memory capacity. Assessed pt's coping mechanisms and spirtual beliefs. Pt claims to have a belief in god. Pt mentioned on two occasions an instance in which she "" previosly and how impactful this experience was. Pt remained in a positive mood throughout the visit. Prayer offered. Pt verbally expressed gratitude and appeared more at ease following the visit.
[2024-03-16 15:51] VITALS: BP 111/58
[2024-03-16] MEDS ORDERED: Apixaban 5 MG Tab PO SCH (16:00)
--- NOTE | 2024-03-16 18:25 | NUR ---
SHIFT SUMMARY PT CONT LEVEL OF CARE. PT NOTED TO BE A&O TO SELF PT CONT TO HAVE CONFUSION AND FORGETTFULNESS. FLOW STASIS WAS REMOVED FROM R LEG AROUND [address] PEREZ. THERAPY DIDNT WORK WITH PT TODAY D/T FLOW STASIS DEVICE STILL BEING IN PLACE AND PT TO BE ON BEDREST TILL REMOVED. THERAPY STATED THEY WOULD REEVAL PT TOMORROW. DR MCKENNA AND PT DECIDED TO NOT GO FORWARD WITH I&D BUT TO INSTEAD CONT WITH AGRESSIVE ABT FOR ABSESS TO R KNEE.
[2024-03-16 20:53] VITALS: BP 105/61
[2024-03-17 04:53] VITALS: BP 108/69
[2024-03-17 05:22] LABS: BASOPHILS ABSOLUTE AUTO 0.06 K/mm3 (0.00-0.23); BASOPHILS PERCENT AUTO 1 % (0-2); EOSINOPHILS PERCENT AUTO 4 % (0-6); Hematocrit 31.4 % (33.0-51.0); Hemoglobin 9.9 g/dL (11.5-16.0); IMMATURE GRAN ABSOLUTE AUTO 0.03 K/mm3 (0.00-0.10); IMMATURE GRAN PERCENT AUTO 1 % (0-1); LYMPHOCYTES ABSOLUTE AUTO 0.98 K/mm3 (0.84-5.20); LYMPHOCYTES PERCENT AUTO 21 % (21-46); MONOCYTES ABSOLUTE AUTO 0.66 K/mm3 (0.16-1.47); MONOCYTES PERCENT AUTO 14 % (4-13); Mean Corpuscular HGB 28.4 pg (26.0-34.0); Mean Corpuscular HGB Conc 31.5 g/dL (31.5-36.5); Mean Corpuscular Volume 90 fL (80-100); Mean Platelet Volume 8.8 fL (9.1-12.4); NEUTROPHILS ABSOLUTE AUTO 2.65 K/mm3 (1.96-9.15); NEUTROPHILS PERCENT AUTO 58 % (41-73); Platelet Count 271 K/mm3 (150-400); RDW Coefficient Variation 13.2 % (11.7-14.2); RDW Standard Deviation 43.2 fL (35.1-46.3); Red Blood Cell Count 3.48 M/mm3 (3.80-5.20); White Blood Cell Count 4.58 K/mm3 (4.00-11.30)
[2024-03-17 05:58] LABS: Bun/Creatinine Ratio 17.9 (12.0-20.0); Calcium, Blood 8.6 mg/dL (8.5-10.1); Creatinine, Blood 0.61 mg/dL (0.40-1.00); Potassium, Blood 3.6 mmol/L (3.5-5.5)
--- NOTE | 2024-03-17 06:51 | NUR ---
Shift Summary Pt rcving IV ABX for R knee abcess. Drainage from the abcess has slowed down to scant amounts, dressing from yesterday remains C/D/I. Pt is 1 assist to the BSC. She is still very forgetful and has trouble remembering what I said to her 15 minutes ago. She is AOx2, pleasant and cooperative.
--- NOTE | 2024-03-17 07:23 | NUR ---
pt laying in bed with eyes closed, wakes easily, a/ox2-3, pleasant and cooperative with care, follows commands with a lot of direction, lungs are clear t/o, resp even and unlabored, no cough noted or reported, hrr, trace edema noted to b/l ankles, ppp+2, cap refill<3 sec, vs stable, afebrile, piv to lfa site is clear and patent, btx4, abd flat soft nontender, voids via bsc with sba, skin has dressing to r knee, александр, kirt, call light in reach, bed alarm activated due to confusion.
[2024-03-17 07:31] VITALS: BP 125/70
[2024-03-17 17:30] VITALS: BP 146/69
--- NOTE | 2024-03-17 18:31 | NUR ---
pt was up ambulating in the restrepo with therapy today, did well, he felt she's at her baseline, she took a shower with assistance, with linen change, no complaints of pain throught this shift, dressing to right knee was changed with scant drainage, no further changes this shift, call light in reach.
[2024-03-17 20:02] VITALS: BP 147/92
--- NOTE | 2024-03-18 05:34 | NUR ---
SHIFT SUMMARY: Pt is admitted for right knee abscess and is a full code. Is alert and able to make most needs known. ADLs have been 1p through shift. Denies pain or discomfort when asked.
[2024-03-18 06:08] VITALS: BP 113/62
--- NOTE | 2024-03-18 07:18 | NUR ---
pt laying in bed wakes easily, states she slept well last night, report from night RN was she was very confused and pulling off dressing multiple times, confusion may increase at hs, she is pleasant and cooperative with care, follows commands well, denies pain, lungs are clear t/o, resp even and unlabored, no cough noted, hrr, edema around right knee, otherwise none, piv to r and l fa's, sites are clear and patent, btx4, abd flat soft nontender, voids without diff, skin c/w/d, except right knee has dressing with minimal drainage, maew, ambulates with walker, kirt, call light in reach.
[2024-03-18 07:49] VITALS: BP 126/72
--- NOTE | 2024-03-18 18:35 | NUR ---
pt had no acute changes this shift, up with sba to bathroom, is confused at times and forgetful, needs lots of direction, call light in reach.
[2024-03-18 20:38] VITALS: BP 128/66
[2024-03-18] MEDS ORDERED: Rivaroxaban 10 MG Tab PO SCH (21:00)
[2024-03-18] MEDS ORDERED: Cephalexin Monohydrate 500 MG Cap PO SCH (21:00)
[2024-03-19 04:18] VITALS: BP 126/64
[2024-03-19 07:33] VITALS: BP 127/71
[2024-03-19] MEDS ORDERED: CEPH500 PO (14:11)
[2024-03-19] MEDS ORDERED: PROBIOTIC1 EA13 PO (14:12)
[2024-03-19] MEDS ORDERED: QUET25 PO (14:13)
[2024-03-19] MEDS ORDERED: XARELTO20 MG PO (14:13)
--- NOTE | 2024-03-19 14:37 | NUR ---
DISCHARGE NOTE MS KAPADIA IS ORIENTATED TO SELF. SHE KNOWS SHE IS IN HOSPITAL, BUT NOT WHICH ONE. SHE DOES NOT KNOW WHY SHE IS HERE. SHE IS VERY FORGETFUL AND FORGETS INFORMATION THAT HAS JUST BEEN DISCUSSED. SHE IS BEING DISCHARGED HOME TODAY. WRITTEN AND VERBAL DISCARGE INSTRUCTIONS GIVEN TO PT AND GRANDAUGHTER AND DISCUSSED OVER THE PHNE WITH PT'S DAUGHTER. FAMILY VERBALISED UNDERSTANDING AND HAD NO UNANSWERED QUESTIONS OR CONCERNS. RIGHT KNEE PUNCTURE WOUNDS CEANSED AND REDRESSED WITH DRY DRESSING THIS MORNING. PT HAD GOOD APPETITE TODAY, DRANK WELL. 1 ASSIST TO BATHROOM, WALKED IN HALLS WITH THERAPIST/WALKER, BED ALARM USED FOR SAFETY. S/B PALLIATIVE CARE RN PRIOR TO DISCHARGE FOR INFORMATION ON ADVANCED DIRECTVES/POLST.
--- NOTE | 2024-03-19 14:56 | NUR ---
pt escorted to exit via wheelchair with SENIOR SOFTWARE QUALITY ANALYST/ granddaughter at 1450hrs.
== END 2024-03-19 14:53 | disposition home health service (06) | DRG 271 ==
LOC: ER 10:58 → MEDS 17:01
PROVIDERS: Emergency Medicine; Pharmacist; ADMIT Family Medicine
PROC: 04CK3ZZ Extirpation of Matter from Right Femoral Artery, Percutaneous Approach (ICD-10-PCS; principal; 2024-03-15)
DX: I82.411 Acute embolism and thrombosis of right femoral vein (principal); L02.415 Cutaneous abscess of right lower limb; T84.53XA Infection and inflammatory reaction due to internal right knee prosthesis, initial encounter; L03.115 Cellulitis of right lower limb; I82.431 Acute embolism and thrombosis of right popliteal vein; Y83.9 Surgical procedure, unspecified as the cause of abnormal reaction of the patient, or of later complication, without mention of misadventure at the time of the procedure; I10 Essential (primary) hypertension; E87.6 Hypokalemia; E03.9 Hypothyroidism, unspecified; Z96.651 Presence of right artificial knee joint; M54.50 Low back pain, unspecified; E55.9 Vitamin D deficiency, unspecified; M79.7 Fibromyalgia; Z90.710 Acquired absence of both cervix and uterus; Z98.890 Other specified postprocedural states; Z79.890 Hormone replacement therapy; Z79.899 Other long term (current) drug therapy; Z87.442 Personal history of urinary calculi; Z98.51 Tubal ligation status; Z90.49 Acquired absence of other specified parts of digestive tract; Z79.01 Long term (current) use of anticoagulants; Z87.891 Personal history of nicotine dependence
CPT/HCPCS: 36415; 37187; 73562-RT; 73701; 75825; 76937; 80048; 80053; 80320; 81001; 84443; 85025; 85520; 85610; 85730; 86140; 87070; 87075; 87077; 87086; 87186; 87205; 93005; 93010; 93971; 96365; 96366; 96367; 96372; 96375; 96376; 97110; 97116; 97161; 97165; 97530; 99152; 99153; 99285-25; A9270; C1757; C1769; C1887; C1894; G0378; J0690; J0696; J1644; J1650; J2250; J3010; J7030; J7050; Q9967